=== PATIENT | male | born 1950 | race Asian ===

== ENCOUNTER 2017-12-31 12:17 | Outpatient (CLI) | payer OTHER, MEDICAID | END 2017-12-31 19:37 | disposition home or self-care (01) | LOC: MRD 12:17 | DX: M17.11 Unilateral primary osteoarthritis, right knee (principal); M25.861 Other specified joint disorders, right knee; M25.762 Osteophyte, left knee | CPT/HCPCS: 73560; Q0092 ==

== ENCOUNTER 2018-11-22 10:27 | Outpatient (CLI) | payer OTHER, MEDICAID | END 2018-11-22 19:53 | disposition home or self-care (01) | LOC: MRD 10:27 | PROVIDERS: ATTEND Neuromusculoskeletal Medicine, Sports Medicine | DX: S82.831D Other fracture of upper and lower end of right fibula, subsequent encounter for closed fracture with routine healing (principal); X58.XXXD Exposure to other specified factors, subsequent encounter | CPT/HCPCS: 73610 ==

== ENCOUNTER 2019-01-11 09:51 | Outpatient (CLI) | payer OTHER, MEDICAID | END 2019-01-11 19:40 | disposition home or self-care (01) | LOC: MRD 09:51 | PROVIDERS: ATTEND Neuromusculoskeletal Medicine, Sports Medicine | DX: S82.401D Unspecified fracture of shaft of right fibula, subsequent encounter for closed fracture with routine healing (principal); M79.89 Other specified soft tissue disorders; M77.31 Calcaneal spur, right foot; X58.XXXD Exposure to other specified factors, subsequent encounter | CPT/HCPCS: 73610 ==